=== PATIENT | female | born 1975 | race Caucasian/White ===

== ENCOUNTER 2018-07-24 14:37 | Emergency (ER) | payer OTHER ==
[2018-07-24 14:53] VITALS: BP 104/54; PULSE 86; TEMP 98; BMI 26.9
--- NOTE | 2018-07-24 14:54 | PDOC ---
Rapid Medical Evaluation Chief Complaint: Pain, Acute Medical Evaluation: I have performed a brief in-person evaluation of this patient. The patient presents with a chief complaint of: L knee pain and swelling x 3 weeks; denies recent trauma Pertinent physical exam findings: Mild L suprapatellar effusion; normal skin color, able to flex and extend I have ordered the following: L knee xray The patient will proceed to the ED for further evaluation. 07/24/18 14:52 Discharge Disposition - Discharge Dispostion Condition at time of disposition: Stable - Referrals - Patient Instructions - Post Discharge Activity
--- NOTE | 2018-07-24 16:02 | PDOC ---
History of Present Illness - General Chief Complaint: Pain, Acute Stated Complaint: LT KNEE PAIN Time Seen by Provider: 07/24/18 14:55 History Source: Patient Exam Limitations: No Limitations - History of Present Illness Initial Comments: 07/24/18 18:46 states has progressive pain and swelling to her left knee for over 3 weeks. Denies any knowledge of trauma or issue. 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 Has never sought evaluation for same. Denies any trauma or any knowledge of acute injury. Has used BenGay ointment with minimal resolved. Denies numbness or tingling to foot, no other injury. Occurred: reports: last week Severity: reports: mild, moderate Pain Location: reports: lower extremity (left knee) Loss of Consciousness: no loss of consciousness Associated Symptoms (Fall): denies symptoms Past History - Travel Traveled outside of the country in the last 30 days: No Close contact w/someone who was outside of country & ill: No - Past Medical History Home Medications: Ambulatory Orders NK [No Known Home Medication] 07/24/18 COPD: No - Immunization History Immunization Up to Date: No - Suicide/Smoking/Psychosocial Hx Smoking History: Never smoked Have you smoked in the past 12 months: No Information on smoking cessation initiated: No Hx Alcohol Use: No Drug/Substance Use Hx: No Review of Systems - Review of Systems Able to Perform ROS?: Yes Is the patient limited Tuvaluan proficient: Yes Constitutional: Yes: Symptoms Reported, See HPI HEENTM: No: Symptoms Reported Respiratory: No: Symptoms reported ABD/GI: No: Symptoms Reported : No: Symptoms Reported Musculoskeletal: Yes: Symptoms Reported, See HPI, Joint Pain, Joint Swelling, Muscle Pain All Other Systems: Reviewed and Negative *Physical Exam - Vital Signs Last Vital Signs Temp Pulse Resp BP Pulse Ox 98.0 F 86 18 104/54 L 100 07/24/18 14:51 07/24/18 14:51 07/24/18 14:51 07/24/18 14:51 07/24/18 14:51 - Physical Exam General Appearance: Yes: Nourished, Appropriately Dressed, Apparent Distress, Mild Distress HEENT: positive: SHELLY, Normal ENT Inspection, TMs Normal, Pharynx Normal Neck: positive: Supple. negative: Lymphadenopathy (R), Lymphadenopathy (L) Respiratory/Chest: positive: Lungs Clear, Normal Breath Sounds Moderate Sedation - Procedure Monitoring Vital Signs: Procedure Monitoring Vital Signs Temperature 98.0 F 07/24/18 14:51 Pulse Rate 86 07/24/18 14:51 Respiratory Rate 18 07/24/18 14:51 Blood Pressure 104/54 L 07/24/18 14:51 O2 Sat by Pulse Oximetry (%) 100 07/24/18 14:51 Progress Note - Progress Note Progress Note: Knee strain, will treat with immobilizer, MI E and follow-up with orthopedic *DC/Admit/Observation/Transfer Diagnosis at time of Disposition: Left knee sprain Qualifiers: Encounter type: initial encounter Involved ligament of knee: unspecified ligament Qualified Code(s): S83.92XA - Sprain of unspecified site of left knee, initial encounter - Discharge Dispostion Disposition: HOME Condition at time of disposition: Stable Decision to Admit order: No - Referrals Referrals: Vaishnavi Carrasco MD [Primary Care Provider] - Hao Izquierdo DO [Staff Physician] - - Patient Instructions Printed Discharge Instructions: DI for Knee Sprain Additional Instructions: Rest, ice to area on and off for 15 minutes 4-6 times a day Avoid heavy lifting or exercise until pain and swelling is resolved or until further directed Keep area highly elevated to reduce swelling Use splints/Gopal wrap as directed Followup with orthopedist in one to 2 days if not improving, if significantly improved may wait one week for followup with orthopedist May use ibuprofen every 6 hours as needed for pain - Post Discharge Activity Forms/Work/School Notes: Back to Work
== END 2018-07-24 16:22 | disposition home or self-care (01) ==
LOC: JERFT 14:37
DX: S83.8X2A Sprain of other specified parts of left knee, initial encounter (principal); X58.XXXA Exposure to other specified factors, initial encounter; Y93.9 Activity, unspecified; Y92.89 Other specified places as the place of occurrence of the external cause; Y99.8 Other external cause status
CPT/HCPCS: 73564-TC-LT-FY; 99281-25